=== PATIENT | male | born 1945 | race Caucasian/White ===

== ENCOUNTER → 2018-01-27 | Outpatient (CLI) | payer MEDICARE ==
[~2018-01-27] MED LIST: COUMADIN5 MG PO; HUMULIN N100 UNITS/ SC; ICAPS MULTIV1 TABLET PO; LISINOPRIL-HCT1 EAC3 PO; NEURONTIN600 MG PO; NOVOLOG 10100 UNITS/ SC; PLAVIX75 MG PO; PRAVACHOL40 MG PO; SYNTHROID75 MCG PO; ULTRAM50 MG PO; VITAMIN B-12250 MCG PO
== END | disposition home or self-care (01) ==
LOC: CDC 10:59
DX: Z01.810 Encounter for preprocedural cardiovascular examination (principal)
CPT/HCPCS: 93000